=== PATIENT | female | born 1980 | race Hispanic/Latino ===

== ENCOUNTER 2023-08-11 09:04 | Outpatient (CLI) | payer OTHER | END 2023-08-11 09:05 | disposition home or self-care (01) | LOC: NAV RAD 09:04 | PROVIDERS: ATTEND Family Medicine | DX: R07.81 Pleurodynia (principal); M54.9 Dorsalgia, unspecified; M47.816 Spondylosis without myelopathy or radiculopathy, lumbar region; M51.34 Other intervertebral disc degeneration, thoracic region | CPT/HCPCS: 72072; 72100 ==